=== PATIENT | female | born 1950 | race African-American/Black ===

== ENCOUNTER 2017-04-01 22:22 | Emergency (ER) | payer MEDICAID ==
[~2017-04-01] VITALS: Ht 167.6 cm; Wt 123.0 kg
[~2017-04-01 22:22] MED LIST: ESCI20TA
[2017-04-01 22:36] VITALS: BP 125/76
[2017-04-01] MEDS ORDERED: ONDANSETRON ODT 4 MG ONE (23:24)
[2017-04-01] MEDS ORDERED: METHOCARBAMOL 750 MG TABLET ONE (23:24)
[2017-04-01] MEDS ORDERED: KETOROLAC 30 MG/1 ML ONE (23:25)
[2017-04-01] MEDS ORDERED: HYDROcodone/APAP 5/325 TABLET ONE (23:25)
[2017-04-01] MEDS ORDERED: KETOROLAC 30 MG/1 ML IM ONE (23:30)
[2017-04-01] MEDS ORDERED: CLON-364 PO (23:30)
[2017-04-01] MEDS ORDERED: METHOCARBAMOL 750 MG TABLET PO ONE (23:30)
[2017-04-01] MEDS ORDERED: LISI1TAB5 PO (23:30)
[2017-04-01] MEDS ORDERED: ONDANSETRON ODT 4 MG PO ONE (23:30)
[2017-04-01] MEDS ORDERED: HYDROcodone/APAP 5/325 TABLET PO ONE (23:30)
[2017-04-02] MEDS ORDERED: GABA300C10 PO
[2017-04-02] MEDS ORDERED: HYDR-879 PO
== END 2017-04-02 01:41 | disposition home or self-care (01) ==
LOC: ED 23:59
DX: M54.41 Lumbago with sciatica, right side (principal); I10 Essential (primary) hypertension; E66.01 Morbid (severe) obesity due to excess calories; Z87.891 Personal history of nicotine dependence; Z88.0 Allergy status to penicillin; Z91.018 Allergy to other foods
CPT/HCPCS: 72110; 96372; 99284; J1885; Q0162